=== PATIENT | male | born 1940 | race Caucasian/White ===

== ENCOUNTER → 2016-08-14 | Outpatient (CLI) | payer MEDICARE | END | disposition home or self-care (01) | LOC: RAD.S 06-04 23:00 | DX: E05.90 Thyrotoxicosis, unspecified without thyrotoxic crisis or storm (principal); R25.1 Tremor, unspecified; R63.4 Abnormal weight loss ==

== ENCOUNTER → 2016-08-26 | Outpatient (CLI) | payer MEDICARE | END | disposition home or self-care (01) | LOC: RAD.S 13:00 | DX: E05.90 Thyrotoxicosis, unspecified without thyrotoxic crisis or storm (principal); R63.4 Abnormal weight loss ==